=== PATIENT | male | born 1955 | race Caucasian/White ===

== ENCOUNTER 2020-08-26 09:40 | Outpatient (CLI) | payer OTHER, SELFPAY ==
[2020-08-26 11:41] LABS: Erythrocyte Sedimentation Rate 7 mm/hr (0-20)
[2020-08-26 12:39] LABS: Rheumatoid Factor < 8.6 IU/ML (<12)
== END 2020-08-26 09:41 | disposition home or self-care (01) ==
PROVIDERS: PCP Emergency Medicine; Visit Provider Internal Medicine Hematology & Oncology
DX: M19.039 Primary osteoarthritis, unspecified wrist (principal); M19.049 Primary osteoarthritis, unspecified hand; M17.9 Osteoarthritis of knee, unspecified
CPT/HCPCS: 36415; 85652; 86038; 86430

== ENCOUNTER 2021-04-18 10:46 | Emergency (ER) | payer MEDICAID, SELFPAY ==
--- NOTE | ~2021-04-18 | CT_ITS ---
EXAMINATION: CT abdomen pelvis w con DATE: 04/18/2021 13:35 INDICATION: Abdominal distention. Obstruction. TECHNIQUE: Computed tomography (CT) of the abdomen and pelvis was performed with 100 mL Omnipaque 350 intravenous contrast. Automated exposure control and iterative reconstruction technique were employe d. The dose-length product was 1425.17 mGy-cm. COMPARISON: None. FINDINGS: The visualized portions of the lung bases demonstrate smooth septal thickening, consistent with mild pulmonary edema. No pleural effusion. The heart size is normal. No pericardial effusion. Th ere is a small sliding hiatal hernia. The liver demonstrates heterogeneous attenuation and nodular ordoñez rface contour, consistent with cirrhosis. There is a gallstone in the gallbladder, which is normal in size. Calcifications in the spleen are consistent with old granulomatous disease. There is mild sple nomegaly. There is a 2.1 cm cystic lesion in the pancreas. The adrenal glands are normal. There are c ysts in the kidneys measuring up to 5.5 cm on the right. There is diverticulosis of the colon without evidence of diverticulitis. The appendix is normal. There is a paraumbilical portacaval shunt. There are no pathologically enlarged lymph nodes. There is no free intraperitoneal fluid. There is severe lower lumbar spondylosis. IMPRESSION: 1. Cirrhosis of the liver with portal venous hypertension. 2. Small sliding hiatal hernia. 3. Cholelithiasis. No evidence of acute cholecystitis. 4. 2.1 cm cystic lesion of the pancreas. The differential diagnosis includes pseudocyst, intraductal papillary mucinous neoplasm (IPMN), mucinous cystic neoplasm (MCN), serous cystadenoma, and neuroendo crine tumor. Consider abdomen MRI without and with contrast in one year. Reviewed, dictated and finalized at location B. IMPRESSION: 1. Cirrhosis of the liver with portal venous hypertension. 2. Small sliding hiatal hernia. 3. Cholelithiasis. No evidence of acute cholecystitis. 4. 2.1 cm cystic lesion of the pancreas. The differential diagnosis includes ps eudocyst, intraductal papillary mucinous neoplasm (IPMN), mucinous cystic neopl asm (MCN), serous cystadenoma, and neuroendocrine tumor. Consider abdomen MRI w ithout and with contrast in one year.
[2021-04-18 10:50] VITALS: BP 157/87; PULSE 78; RESP 18; TEMP 36.6; O2SAT 92
[2021-04-18 12:38] LABS: Basophils Absolute Auto 0.1 K/mm3 (0.0-0.1); Basophils Percent Auto 0.7 % (0.2-1.2); Eosinophils Absolute Auto 0.5 K/mm3 (0-0.3); Eosinophils Percent Auto 6.1 % (0-4.4); Hematocrit 47.2 % (42.0-52.0); Immature Granulocyte Absolute 0.03 K/mm3 (0.00-0.031); Immature Granulocyte Percent A 0.4 % (0-0.5); Lymphocytes Percent Auto 28.5 % (18.3-44.2); Mean Corpuscular HGB Conc 33.9 g/dl (32-36); Mean Corpuscular Hemoglobin 30.7 pg (26-34); Mean Corpuscular Volume 90.6 fl (80-100); Mean Platelet Volume 11.1 fl (7.4-10.4); Monocytes Absolute Auto 0.9 K/mm3 (0.1-0.6); Monocytes Percent Auto 11.5 % (2.6-8.5); Neutrophils Absolute Auto 3.9 K/mm3 (1.3-6.7); Neutrophils Percent Auto 52.8 % (45.5-73.1); Platelet Count Result 184 k/mm3 (150-375); Red Blood Count 5.21 M/mm3 (4.6-6.20); Red Cell Distribution Width 13.2 % (11.5-14.5); White Blood Count 7.4 K/mm3 (4.5-10.0)
[2021-04-18 13:11] LABS: Alanine Aminotransferase 41 U/L (4-50); Alkaline Phosphatase 79 U/L (38-126); Anion Gap 7 mmol/L (8-16); Aspartate Amino Transferase 54 U/L (17-59); Bilirubin,Total 0.9 mg/dL (0.2-1.3); Blood Urea Nitrogen 16 mg/dL (9-20); Calcium 9.3 mg/dL (8.4-10.2); Carbon Dioxide 26 mmol/L (22-30); Chloride 106 mmol/L (98-107); Estimated CRCL calculation 97 ml/min; Estimated Glomerular Filt Rate > 60; Glucose 124 mg/dL (75-110); Lipase 20 U/L (23-300); Potassium 3.5 mmol/L (3.4-5.0); Sodium 139 mmol/L (137-145)
--- NOTE | 2021-04-18 13:33 | ED.GENADULT ---
HPI - General Adult General Chief complaint: Unspecified Stated complaint: ABDOMINAL DISTENTION SENT BY PCP Time Seen by Provider: 04/18/21 11:15 Source: patient and RN notes reviewed Mode of arrival: ambulatory Limitations: no limitations History of Present Illness HPI narrative: Patient 65-year-old male who presents per request primary care was seen primary care today for routine follow-up was sent over for concern that he has become more distended patient notes that he is chronically distended and denies any worsening condition or concerns but presents per request of his primary care doctor patient denies any recent illness patient notes he socially drinks alcohol a few times a week he also notes that he has history of hepatitis C patient is followed by primary care has no other complaints presents in no distress Review of Systems Review of Systems: All systems reviewed & are unremarkable except as noted in HPI and below PMFSH Past Medical History Medical History (Updated 04/18/21 @ 13:53 by Yuri Sotomayor PA-C) Hepatitis C Social History Social History (Updated 04/18/21 @ 13:35 by Yuri Sotomayor PA-C) Smoking status: Never smoker Gender identity (if verbalized by the patient): Male Exam Narrative: Exam Narrative: GENERAL: Well-appearing, well-nourished, and in no acute distress. HEAD: Normocephalic, atraumatic. EYES: PERRLA and EOMI. ENT: Nares clear, no rhinorrhea or epistaxis. Mucous membranes moist. CHEST: Clear to auscultation. No respiratory distress. No wheezes rales or rhonchi HEART: Regular rate and rhythm. No murmur heard. Normal peripheral pulses. ABDOMEN: Soft, mild tenderness of the abdomen without rebound or guarding, distended, normal active bowel sounds. EXTREMITIES: Normal range of motion. No edema. SKIN: Warm, dry, no rash. NEURO: No focal deficits. Alert and oriented x3. PSYCH: Normal mood and affect. Course Course Emergency Course: Patient evaluated the emergency department afebrile nontoxic-appearing no distress felt appropriate for outpatient reevaluation made aware of imaging and blood work findings will be referred back to primary care for specialty referrals patient agrees with this plan patient was given reasons to return Vital Signs Vital signs: Vital Signs Temperature 97.8 F 04/18/21 10:50 Pulse Rate 78 04/18/21 10:50 Respiratory Rate 18 04/18/21 10:50 Blood Pressure 157/87 H 04/18/21 10:50 Pulse Oximetry 92 04/18/21 10:50 Temperature 97.8 F 04/18/21 10:50 Pulse Rate 78 04/18/21 10:50 Respiratory Rate 18 04/18/21 10:50 Blood Pressure 157/87 H 04/18/21 10:50 Pulse Oximetry 92 04/18/21 10:50 Medical Decision Making MDM Narrative Medical decision making narrative: Patient in the room at this time in no distress aware of case findings treatment plan diagnosis will be discharged back to primary care for appropriate referrals patient agrees with this plan Vital Signs Vital Signs: Vital Signs Temperature 97.8 F 04/18/21 10:50 Pulse Rate 78 04/18/21 10:50 Respiratory Rate 18 04/18/21 10:50 Blood Pressure 157/87 H 04/18/21 10:50 Pulse Oximetry 92 04/18/21 10:50 Temperature 97.8 F 04/18/21 10:50 Pulse Rate 78 04/18/21 10:50 Respiratory Rate 18 04/18/21 10:50 Blood Pressure 157/87 H 04/18/21 10:50 Pulse Oximetry 92 04/18/21 10:50 Lab Data Result diagrams: 04/18/21 11:53 04/18/21 11:53 Labs: Lab Results 04/18/21 04/18/21 Range/Units 11:53 11:53 WBC 7.4 (4.5-10.0) K/mm3 RBC 5.21 (4.6-6.20) M/mm3 Hgb 16.0 (14.0-18.0) g/dL Hct 47.2 (42.0-52.0) % MCV 90.6 (80-100) fl MCH 30.7 (26-34) pg MCHC 33.9 (32-36) g/dl RDW 13.2 (11.5-14.5) % Plt Count 184 (150-375) k/mm3 MPV 11.1 H (7.4-10.4) fl Immature Gran % (Auto) 0.4 (0-0.5) % Neut % (Auto) 52.8 (45.5-73.1) % Lymph % (Auto) 28.5 (18.3-44.2) % [place] % (Auto) 11.5 H (2.6-
[2021-04-18 14:15] VITALS: BP 132/98; PULSE 95; RESP 16; O2SAT 96
== END 2021-04-18 14:15 | disposition home or self-care (01) ==
PROVIDERS: Emergency Medicine Emergency Medical Services; Emergency Provider Emergency Medicine; PCP Emergency Medicine
DX: K86.9 Disease of pancreas, unspecified (principal); K74.60 Unspecified cirrhosis of liver; Z86.19 Personal history of other infectious and parasitic diseases; K76.6 Portal hypertension; K44.9 Diaphragmatic hernia without obstruction or gangrene; K80.20 Calculus of gallbladder without cholecystitis without obstruction
CPT/HCPCS: 36415; 74177; 80048; 80076; 83690; 85025; 99284; Q9967